=== PATIENT | male | born 1955 | race Caucasian/White ===

== ENCOUNTER → 2021-02-03 | Outpatient (REF) | payer BC | LOC: M LAB REF 15:40 | PROVIDERS: ATTEND Physician Assistant | DX: D23.5 Other benign neoplasm of skin of trunk (principal) ==

== ENCOUNTER → 2021-05-09 | Outpatient (CLI) | payer BC, MEDICARE | LOC: M PLALAB 11:31 | PROVIDERS: ATTEND Nurse Practitioner Family | DX: N39.0 Urinary tract infection, site not specified (principal); R97.20 Elevated prostate specific antigen [PSA] | CPT/HCPCS: 36415; 87086; G0463 ==

== ENCOUNTER → 2021-12-26 | Outpatient (REF) | payer BC, MEDICARE | LOC: M SFHCDERM 17:18 | PROVIDERS: ATTEND Dermatology | DX: D23.5 Other benign neoplasm of skin of trunk (principal) ==

== ENCOUNTER → 2023-09-24 | Outpatient (REF) | payer MEDICARE | LOC: M SFHCDERM 17:21 | PROVIDERS: ATTEND Dermatology | DX: D22.39 Melanocytic nevi of other parts of face (principal) ==

== ENCOUNTER → 2025-05-30 | Outpatient (CLI) | payer MEDICARE ==
[~2025-05-30] MED LIST: PROHANCE 279.3MG/ML 15ML VIAL As Ordered ONE; PROHANCE 279.3MG/ML 5ML VIAL As Ordered ONE
== END ==
LOC: M RAD 16:25
PROVIDERS: ATTEND Internal Medicine
DX: R29.90 Unspecified symptoms and signs involving the nervous system (principal); R42 Dizziness and giddiness
CPT/HCPCS: 70553; A9576

== ENCOUNTER → 2025-10-03 | Outpatient (CLI) | payer MEDICARE ==
[2025-10-03 09:46] LABS: PLATELET COUNT, AUTOMATED 231 10^3/uL (150-450)
[2025-10-03 10:21] LABS: C REACTIVE PROTEIN QUANTITATIV < 0.50 MG/DL (<1.0)
[2025-10-03 10:22] LABS: ALT/SGPT 37 U/L (7.0-40); AST/SGOT 22 U/L (<34); IRON (FE) 86 UG/DL (65-175); PERCENT SATURATION 24.7 % (19.7-50.0)
[2025-10-03 10:34] LABS: TOTAL 25(OH) VITAMIN D 31.0 NG/ML (20.0-100.0)
[2025-10-03 10:55] LABS: VITAMIN B12 LEVEL 588 PG/ML (211-911)
== END ==
LOC: M LAB 08:45
PROVIDERS: ATTEND Internal Medicine Gastroenterology
DX: Z93.2 Ileostomy status (principal); K51.019 Ulcerative (chronic) pancolitis with unspecified complications

== ENCOUNTER → 2025-11-01 | Outpatient (CLI) | payer MEDICARE | LOC: M CARPUL 14:28 | PROVIDERS: ATTEND Nurse Practitioner Family | DX: I25.10 Atherosclerotic heart disease of native coronary artery without angina pectoris (principal); R07.9 Chest pain, unspecified ==